=== PATIENT | female | born 1990 | race Caucasian/White ===

== ENCOUNTER 2020-08-28 12:22 | Emergency (ER) | payer OTHER ==
[2020-08-28 12:27] VITALS: BP 159/103; PULSE 101; RESP 16; TEMP 98.9
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
== END 2020-08-28 13:37 | disposition home or self-care (01) ==
LOC: EC 12:22
DX: Z04.1 Encounter for examination and observation following transport accident (principal); M79.89 Other specified soft tissue disorders; F17.200 Nicotine dependence, unspecified, uncomplicated
CPT/HCPCS: 99283